=== PATIENT | female | born 1980 | race Caucasian/White ===

== ENCOUNTER 2020-10-30 02:31 | Observation (INO) ==
[2020-10-30] MEDS ORDERED: Nitroglycerin 0.4 MG TAB.SUBL SL ONE (03:14)
[2020-10-30] MEDS ORDERED: Acetaminophen 325 MG TABLET PO PRN (05:10)
[2020-10-30] MEDS ORDERED: Naloxone 0.4 MG/ML INJ IVP PRN (05:10)
[2020-10-30] MEDS ORDERED: Ondansetron 4 MG/2 ML VIAL IVP PRN (05:10)
[2020-10-30] MEDS ORDERED: Perflutren Lipid Microsphere 1.3 ML in 0.9 % Sodium Chloride 8.7 ML IVP PRN (05:12)
[2020-10-30] MEDS ORDERED: Regadenoson 0.4 MG/5 ML SYRINGE IVP ONE (06:26)
[2020-10-30 06:45] LABS: Basophils # 0.1 K/mcL (0.0-0.2); Basophils % 0.6 %; Eosinophils # 0.5 K/mcL (0.0-0.6); Eosinophils % 6.5 %; Hematocrit 37.4 % (35.3-44.9); Hemoglobin 12.1 g/dL (11.5-15.4); Immature Granulocytes % 0.3 % (0-4); Lymphocytes # 2.8 K/mcL (0.6-4.6); Lymphocytes % 35.4 %; Mean Corpuscular HGB Conc 32.4 g/dL (31.6-35.5); Mean Corpuscular Hemoglobin 29.9 pg (28.0-33.3); Mean Corpuscular Volume 92.3 fL (83.0-100.0); Mean Platelet Volume 11.6 fL (9.4-12.4); Monocytes # 0.6 K/mcL (0.0-1.3); Monocytes % 7.4 %; Neutrophils # 3.9 K/mcL (1.6-8.9); Platelet Count 217 K/mcL (140-400); Red Blood Count 4.05 M/mcL (3.82-4.97); Red Cell Distribution Width 14.2 % (11.5-14.5); Segmented Neutrophils % 49.8 %; White Blood Count 7.9 K/mcL (4.3-11.1)
[2020-10-30 06:50] LABS: Prothrombin Time 11.7 Seconds (9.4-12.1)
[2020-10-30 08:10] LABS: BUN/Creatinine Ratio 15 (6-26); Blood Urea Nitrogen 11 mg/dL (6-20); Calcium 8.6 mg/dL (8.6-10.3); Carbon Dioxide 25 mEq/L (23-29); Chloride 104 mEq/L (98-107); Chol/HDL Ratio 2.8 (0-4.9); Cholesterol 143 mg/dL (< 200); Glucose 84 mg/dL (70-105); HDL Cholesterol 52 mg/dL (40-59); LDL Cholesterol,Calculated 72 mg/dL (< 100); Magnesium 1.9 mg/dL (1.6-2.6); Osmolality,Calculated 285 (280-300); Sodium 138 mEq/L (136-145); Triglycerides 97 mg/dL (< 150); eGFR For African Americans > 60 (> 60); eGFR For Non-African Americans > 60 (> 60)
[2020-10-30 11:04] VITALS: BP 105/70; PULSE 70; TEMP 97.8; O2SAT 100
== END 2020-10-30 13:25 | disposition home or self-care (01) ==
LOC: EMEROOARM 02:31 → 3ANU 02:31
PROVIDERS: ADMIT Internal Medicine; ATTEND Internal Medicine